=== PATIENT | male | born 1995 | race Caucasian/White ===

== ENCOUNTER 2018-06-25 14:08 | Emergency (ER) | payer OTHER ==
[2018-06-25 14:11] VITALS: BP 128/90
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
== END 2018-06-25 14:41 ==
LOC: ERH 14:08
DX: S61.211A Laceration without foreign body of left index finger without damage to nail, initial encounter (principal); W26.0XXA Contact with knife, initial encounter; Y92.009 Unspecified place in unspecified non-institutional (private) residence as the place of occurrence of the external cause
CPT/HCPCS: J2001

== ENCOUNTER 2018-07-21 01:30 | Emergency (ER) | payer OTHER ==
[~2018-07-21] VITALS: Ht 190.5 cm; Wt 131.5 kg
[2018-07-21 01:44] VITALS: BP 124/74
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
[2018-07-21] MEDS ORDERED: IBUPROFEN800 M1 PO (01:51)
--- NOTE | 2018-07-21 02:44 | RADIOLOGY REPORT ---
EXAMINATION: XR NASAL BONES CLINICAL INFORMATION: Pain following injury. COMPARISON: None TECHNIQUE: 3 views of the nasal bones were obtained. FINDINGS: There are no fractures or dislocations. No bone, joint or soft tissue abnormality is demonstrated. IMPRESSION: No acute fracture demonstrable. The paranasal sinuses are clear.
== END 2018-07-21 02:48 ==
LOC: ERH 01:30
DX: S09.92XA Unspecified injury of nose, initial encounter (principal); Y04.0XXA Assault by unarmed brawl or fight, initial encounter
CPT/HCPCS: 70160